=== PATIENT | female | born 1930 | race Caucasian/White ===

== ENCOUNTER 2017-03-07 08:47 | Inpatient (IN) | payer MEDICARE, BC ==
--- NOTE | ~2017-03-07 | DS ---
Discharge Summary [facility] [address] [place]. [address] NAME: ALIA BAEZ : 30 STATUS : DIS IN PAT#: [id number] AGE: 87 ADM/REG DATE : 03/07/17 MR#: [id number] REPORT SERV DATE: 03/12/17 DICTATED BY: LEATHA BELLA DATE: 03/11/17 REPORT STATUS : Draft TRANSCRIBED BY: MODL DATE: 03/11/17 ADMISSION DATE: 03/07/2017 DISCHARGE DATE: 03/11/2017 CONSULTING PHYSICIAN: Chay Gee M.D., Orthopedics. DISCHARGE DIAGNOSES: 1. Fall with acute traumatic fracture of left hip. 2. Acute blood loss anemia due to fracture and surgery. 3. Severe senile dementia with acute delirium postop, transient, improved. 4. 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 5. 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 6. History of recurring Clostridium difficile colitis, but not currently. 7. History of chronic lymphocytic colitis. 8. Previous gastrointestinal bleed when on Plavix. 9. Coronary bypass in 1991. 10.Bilateral rotator cuff tears, chronic. HISTORY: This patient has known dementia and was recently hospitalized here 01/18/2017 through 01/25/2017 with an acute left temporal stroke complicated by encephalopathy and seizures. She was discharged to rehab and had gone home. She was in the bathroom, heard the sound of a fall, came and found her on the floor. She was conscious, could not get up. The family was not aware of any other witnessed falls, but they had noticed a bruise over her left eyebrow a day or two prior to this admission. They did not know how she got it. She was brought to the emergency room at [facility] where she was found on x-ray to have an acute left hip fracture. We were asked to admit her to the hospital. She was medically evaluated and felt to be cleared for her surgery. I talked with the patient, her , and daughter about her perioperative risks. Her revised cardiac risk index was 6.6%. But there were no good other alternatives for this patient who wants to ambulate in the future. She underwent surgical repair of that left hip on 03/08/2017. Afterwards the patient did have some delirium, some of it may have been aggravated by narcotics, some of it may have been aggravated by the noise and stimulation of the hospital. Her opiates have been minimized, and she has done better. Today she is calm, cooperative, eating well, and pleasant. She has acute blood loss anemia. Her hemoglobin on admission 11.3, at discharge 8.5, this is consistent with her fracture and the surgical repair. This will need monitoring as well her PT/INR as she is now on prophylactic Coumadin after her hip fracture. INR at discharge is 1.6. The patient has a history of C. difficile colitis and her GI specialist, Dr. Alarcon, at Discharge Summary [address] [place]. [address] NAME: ALIA BAEZ : 30 STATUS : DIS IN PAT#: [id number] AGE: 87 ADM/REG DATE : 03/07/17 MR#: [id number] REPORT SERV DATE: 03/12/17 DICTATED BY: LEATHA BELLA DATE: 03/11/17 REPORT STATUS : Draft TRANSCRIBED BY: CAMELIA DATE: 03/11/17 Zane actually has her taking vancomycin 125 mg by mouth every third day as a single dose to reduce the risk of recurring C. difficile colitis. I see at home she was taking Prevacid, but I do not see a good indication for it and it does increase the risk of recurrent C. difficile colitis, so we are stopping it at this point in time. DISCHARGE MEDICATIONS: 1. Exforge 10/320 mg one p.o. every morning, hold if systolic less than 110. 2. Aspirin 81 mg daily (because of prior stroke). 3. Entocort EC 6 mg every morning for chronic lymphocytic colitis. 4. Restasis ophthalmic one drop both eyes twice a day. 5. Os-Mick 500 mg at bedtime. 6. Aricept 10 mg at bedtime. 7. Keppra 500 mg b.i.d. 8. Multivitamin once a day. 9. Toprol-XL 100 mg at bedtime. Hold if pulse less than 60 or systolic less than 105. 10.Zoloft 50 mg every morning. 11.Zocor 40 mg every evening. 12.Tramadol 50 mg q.6 hours p.r.n. pain and the Orthopedic Team wrote a prescription for 120 tablets. 13.Vancomycin 125 mg every third day. 14.Coumadin 2.5 mg at bedtime. 15.Tylenol 650 mg q.4 hours p.r.n. mild pain. 16.Mylanta p.r.n. indigestion. 17.Refresh eye drops p.r.n. 18.Lomotil 2.5 mg every 3 hours, but only use that if she has had more than three loose stools. 19.Dulcolax suppository p.r.n. 20.Milk of magnesia p.r.n. 21.Hydrocodone 5/325 mg one or two every 4 hours p.r.n. pain, Orthopedics prescribed 60 of these. 22.MiraLAX p.r.n. 23.Zofran 4 mg q.4 hours p.r.n. nausea. 24.Probiotic once every day. She should follow up with Orthopedic, Dr. Gee in two to three weeks. She should have CBC, PT/INR with BMP two times per week. I spent 25 minutes today with the patient and with discharge planning. SHAHEED/CAMELIA Leatha Bella M.D. / [id number] Discharge Summary [address] [address] NAME: ALIA BAEZ : 30 STATUS : DIS IN PAT#: [id number] AGE: 87 ADM/REG DATE : 03/07/17 MR#: [id number] REPORT SERV DATE: 03/12/17 DICTATED BY: LEATHA BELLA DATE: 03/11/17 REPORT STATUS : Draft TRANSCRIBED BY: CAMELIA DATE: 03/11/17 CC: Cullen Preciado M.D. [facility] Jose Cullen Aguirre MD William Warren, M.D.
--- NOTE | ~2017-03-07 | HP ---
History And Physical [address] [place]. [address] NAME: ALIA BAEZ : 30 STATUS : ADM IN PAT#: [id number] AGE: 87 ADM/REG DATE : 03/07/17 MR#: [id number] REPORT SERV DATE: 03/08/17 DICTATED BY: ANKITA RODRIGUEZ DATE: 03/08/17 REPORT STATUS : Draft TRANSCRIBED BY: CAMELIA DATE: 03/08/17 DATE OF ADMISSION: 03/07/2017 CHIEF COMPLAINT: Right hip pain. HISTORY: This is a very pleasant 87-year-old female well known to me for many years, who fell and injured her right hip. Denies pain or injury elsewhere. No associated loss of consciousness, shortness of breath, chest pain, etc. ALLERGIES: SULFA, MORPHINE, CODEINE. MEDICATIONS: See chart. PAST MEDICAL HISTORY: Hearing loss, cataracts, coronary artery disease, hypercholesterolemia, hypertension, myocardial infarction, osteoporosis, arthritis, GERD. PAST SURGICAL HISTORY: Hysterectomy; stapedectomy; CABG x4, 1991; bilateral cataracts, 1993; renal artery stent in 2007; cholecystectomy, 2008; appendectomy, 2010. SOCIAL HISTORY: . No cigarettes, alcohol, or illicit drug use. FAMILY HISTORY: No anesthetic complications. REVIEW OF SYSTEMS: No recent illnesses. PHYSICAL EXAMINATION: GENERAL: She is alert and oriented x3, in no apparent distress. HEENT: Atraumatic, normocephalic. NECK: Supple. CHEST: Symmetric. Nontender. LUNGS: Per evaluation and medicine evaluation. ABDOMEN: Soft. No masses. CV: Regular. EXTREMITIES: Both upper extremities, left lower extremity without acute trauma. Right hip short and externally rotated. SKIN: Intact. Compartments supple. 2+ pulses. NEURO: Sensorimotor without deficit. X-RAYS: Displaced right femoral neck fracture. ASSESSMENT: Displaced right femoral neck fracture. PLAN: Right total hip arthroplasty. Risks, benefits, etc. explained. The patient wishes to proceed. History And Physical [address] [place]. [address] NAME: ALIA BAEZ : 30 STATUS : ADM IN PAT#: [id number] AGE: 87 ADM/REG DATE : 03/07/17 MR#: [id number] REPORT SERV DATE: 03/08/17 DICTATED BY: ANKITA RODRIGUEZ DATE: 03/08/17 REPORT STATUS : Draft TRANSCRIBED BY: MODLaura DATE: 03/08/17 WTB/CAMELIA Chay Rodriguez M.D. / [id number] CC: Cullen Preciado M.D.
--- NOTE | ~2017-03-07 | HP ---
History And Physical [place] [id number] [place]. [address] NAME: ALIA BAEZ : 30 STATUS : ADM IN PAT#: [id number] AGE: 87 ADM/REG DATE : 03/07/17 MR#: [id number] REPORT SERV DATE: 03/08/17 DICTATED BY: ANKITA RODRIGUEZ DATE: 03/08/17 REPORT STATUS : Draft TRANSCRIBED BY: MODL DATE: 03/08/17 DATE OF ADMISSION: 03/07/2017 Everything I said, it should be left hip. She has a left hip fracture. WTB/MODL Chay Rodriguez M.D. / [id number] CC: Cullen Preciado M.D.
--- NOTE | ~2017-03-07 | OP ---
Record Of [facility] [address] [place]. [address] NAME: ALIA BAEZ : 30 STATUS : DIS IN PAT#: [id number] AGE: 87 ADM/REG DATE : 03/07/17 MR#: [id number] REPORT SERV DATE: 03/11/17 DICTATED BY: ANKITA RODRIGUEZ DATE: 03/11/17 REPORT STATUS : Draft TRANSCRIBED BY: CAMELIA DATE: 03/11/17 DATE OF PROCEDURE: 03/08/2017 PREOPERATIVE DIAGNOSIS: Left intertrochanteric femur fracture. POSTOPERATIVE DIAGNOSIS: Left intertrochanteric femur fracture. OPERATION: Dent/intertrochanteric femur fracture. SIDE: Left. MANUFACTURING RECRUITER: See chart. ESTIMATED BLOOD LOSS: About 100 mL. TOURNIQUET TIME: None. COMPLICATIONS: None. SPECIMENS: None. ANESTHESIA: See chart. PROCEDURE: The patient was taken to the preoperative holding area. The patient was appropriately identified, marked and the consent form carefully checked. The patient was taken then to the operating room and anesthetic was induced per the anesthesiologist. The patient was carefully positioned, carefully padded, prepped and draped on the fracture table. Prior to the surgical prep a closed reduction was obtained by closed method using fluoroscopic guidance. The patient was then prepped and draped in the usual sterile fashion. Using fluoroscopic guidance, a straight lateral incision was made. This was followed by electrocautery through the fat, the IT band and the vastus, staying towards the posterior portion of the lateral vastus to decrease the amount of muscle tissue that was cut through. Meticulous hemostasis was obtained with electrocautery. Lateral femoral cortex was exposed further with periosteal elevator and appropriate retraction. A guide was then used to place a guidewire basically in the center of the head on AP and lateral x-ray views. This was followed by depth gauge and then triple reamer. Lag screw was placed over the guidewire. The sliding plate was then placed and impacted and checked to be sure it was down snug. The plate was held with a plate clamp distally and reduction again checked. The screw holes in the plate were then filled with screws in the standard fashion with drill depth gauge and then self-tapping screw placement. The screws were then tightened by hand. Record Of Operation [facility] [address] [place]. [address] NAME: ALIA BAEZ : 30 STATUS : DIS IN PAT#: [id number] AGE: 87 ADM/REG DATE : 03/07/17 MR#: [id number] REPORT SERV DATE: 03/11/17 DICTATED BY: ANKITA RODRIGUEZ DATE: 03/11/17 REPORT STATUS : Draft TRANSCRIBED BY: MODL DATE: 03/11/17 All traction was released and the compression screw placed and tightened. Again x-ray views were checked to ascertain reduction and screw length. The wound was then irrigated and closed with sutures in the vastus. A medium drain was placed distally anteriorly between the vastus and the IT band, then sutured on the IT band, 2-0 subcutaneous, and sheree in the skin. Wound dressed sterilely. The patient was awakened and carefully transferred to the bed and transferred to the recovery room without incident. COUNTS: Correct. WTB/MODL Chay Rodriguez M.D. / [id number] CC: Cullen Preciado M.D.
--- NOTE | ~2017-03-07 | HP ---
History And Physical [place] [address] [place]. [address] NAME: ALIA BAEZ : 30 STATUS : ADM IN [facility]#: [id number] AGE: 87 ADM/REG DATE : 03/07/17 MR#: [id number] REPORT SERV DATE: 03/07/17 DICTATED BY: LEATHA BELLA DATE: 03/07/17 REPORT STATUS : Draft TRANSCRIBED BY: MODL DATE: 03/07/17 DATE OF ADMISSION: 03/07/2017 IDENTIFYING DATA: An 87-year-old white female, whose PCP is Dr. Claudio Butterfield, Neurology Dr. Kate Padilla, GI Dr. Vadim Alarcon, at [place], audio visual arts director Dr. Nicola Bradley and Dr. Samy Ghosh. CHIEF COMPLAINT: Fall. HISTORY OF PRESENT ILLNESS: This history of present illness is obtained by talking directly with the patient as well as and daughter at the bedside as well as ER physician, Dr. Knowles and reviewed [employer] and [employer]. The patient fell at home this morning unwitnessed, heard the fall, heard her call out. She only recalls that she thinks her left leg gave out. states, she was screaming immediately, could not get up, called 911, brought to the emergency room, found to have a left hip fracture, and we were contacted to do the admission. Family states, she has no other recent falls, but they did find a bruise over her left eyebrow a day or two ago that they had no idea how she got it. REVIEW OF SYSTEMS: She has had some cough, sneezes, rhinorrhea, slight ankle edema, chronic anorexia, supposed to drink boost twice a day, but maybe takes a can every couple days. She has thin skin and bruises easily. She has report of bilateral rotator cuff tears, but not healthy enough repair. She has had no recent fever, chest pain, shortness of breath, abdominal pain, nausea, vomiting, diarrhea, (no diarrhea at least three weeks). She has had no recent rectal bleeding, melena, dysuria (reportedly finished a course of Cipro for urinary tract infection on 02/25/2017). No recent tick bites or headaches. PAST MEDICAL HISTORY: She claims allergies to sulfa, morphine, and codeine, family corroborates. No history of diabetes, asthma, COPD, congestive heart failure, peptic ulcer, liver disease, chronic kidney disease, kidney stones, thyroid disease, cancer, or sleep apnea. She was hospitalized here in 01/18/2017 through 01/25/2017 with an acute left temporal lobe ischemic stroke, complicated by encephalopathy and seizures. Neurology at that time, started her on Keppra and she has not had any reported seizures since that time. She went to [facility] for rehab and then home. She has had a history of recurring episodes of C difficile colitis, so frequent and severe that on 05/2016 at [place], the patient had fecal transplant. She reportedly had another episode of C difficile colitis 08/2016, and was just placed on vancomycin and according to the family, their GI doctor has her now on chronic small dose of vancomycin 125 mg every three days long-term. She also has a history of lymphocytic colitis, for which she has been on budesonide. She also has a history of esophageal stricture with previous dilatation. History And Physical [address] [place]. [address] NAME: ALIA BAEZ : 30 STATUS : ADM IN [facility]#: [id number] AGE: 87 ADM/REG DATE : 03/07/17 MR#: [id number] REPORT SERV DATE: 03/07/17 DICTATED BY: LEATHA BELLA DATE: 03/07/17 REPORT STATUS : Draft TRANSCRIBED BY: CAMELIA DATE: 03/07/17 She also reportedly had a previous GI bleed while she was on Plavix. She has senile dementia, Alzheimer's type. She had coronary bypass in 1991. She has had renal artery stenosis, treated with a stent. She had a reportable left carotid stenosis, but not felt to need surgery. She has had hypertension. She has had weight loss with anorexia and her weight was 90 pounds when she went to the rehab on 01/25, and was 97 pounds when she left three weeks later, but currently at home was reportedly 94 pounds. HOME MEDICATIONS: Exforge 10/320 once a day, refresh one drop both eyes q.i.d., aspirin 81 mg daily, Entocort EC 6 mg every day, Os-Mick 500 mg at bedtime, Restasis twice a day one drop, Lomotil one tablet every three hours p.r.n. diarrhea, but only if she has had more than three loose stools, Aricept 10 mg at bedtime, Prevacid 30 mg daily, Keppra 500 mg b.i.d., Toprol-XL 100 mg daily, probiotic once a day, multivitamin once a day, Zoloft 50 mg daily, Zocor 40 mg at bedtime, vancomycin 125 mg every third day. PAST SURGICAL HISTORY: She has had coronary bypass, appendectomy, tonsillectomy, cholecystectomy, cataract surgery, and a left wrist fracture. SOCIAL HISTORY: She is . She is a retired housewife. She lives at home with her , has home health. Uses a walker most of the time, but did not have it in the bathroom with her today when she fell. She has no tobacco or alcohol intake history. FAMILY HISTORY: Mother had heart disease and hypertension. Father killed in his 20s with a gunshot wound. Siblings with diabetes, heart disease, ovarian cancer, stroke, and one of them had ALS. DIAGNOSTIC DATA: Chest x-ray shows a portable single film with cardiomegaly, clear lung ochoa, evidence of previous sternotomy per my interpretation. EKG has not been done yet. Today her EKG from 01/18/2017, normal sinus rhythm, nonspecific ST abnormalities, T-wave inversion more evident in the lateral leads. Sodium 139, potassium 3.4, chloride 102, CO2 is 25, BUN 18, creatinine 0.74, glucose is 96, calcium 9.3, magnesium 2.2, albumin 3.2. The rest of the CMP is normal. White count is 9, hemoglobin 11.3, platelets 328,000. Protime 13.8, INR 1.1, PTT is 23.6. Echocardiogram on 01/21/2017, left atrium 4 cm, left ventricular ejection fraction 60%, concentric LVH, aortic valvular sclerosis without stenosis, pulmonary artery pressure 41. PHYSICAL EXAMINATION: VITAL SIGNS: Temp is 98, pulse 70, respirations 16, blood pressure 160/70, O2 saturation is 100% on room air. GENERAL: A well-developed older female, who appears in mild discomfort, but in no acute distress. HEENT: Head is atraumatic. Pupils are equal, round, and reactive to light. Extraocular motions are intact. No scleral icterus noted. There is evidence of previous cataract surgery. Ear canals on the left normal, right side with a hearing aid in place. No inflammatory changes noted externally. Nose, noninflamed externally. Septum midline. Nares patent. Mouth, moist. Good gag. No redness of the throat, gums, or lips. History And Physical [address] [place]. [address] NAME: ALIA BAEZ : 30 STATUS : ADM IN PAT#: [id number] AGE: 87 ADM/REG DATE : 03/07/17 MR#: [id number] REPORT SERV DATE: 03/07/17 DICTATED BY: LEATHA BELLA DATE: 03/07/17 REPORT STATUS : Draft TRANSCRIBED BY: CAMELIA DATE: 03/07/17 NECK: Supple. No lymph node or thyroid enlargement. The carotids have good pulses. There is a left-sided carotid bruit. HEART: Regular rate and rhythm with a grade 1 systolic murmur heard at the right second intercostal space. No lift or heave. LUNGS: Clear. Good air flow. No wheezes. No rhonchi. Normal respiratory effort. ABDOMEN: Bowel sounds are positive. Soft, nondistended, nontender. No masses. No organomegaly. EXTREMITIES: Warm. Good pulses. No clubbing, no cyanosis, no edema. No actively inflamed skin. She has some chronic venous stasis changes in her ankles. Her left leg is shortened and externally rotated. She is not moving it at this time other than she will move her toes to command. NEUROLOGIC: She is alert. She is oriented to person, somewhat to circumstance. Her memory of recent events is very poor. She follow simple commands. Her motor strength in her hands 2/5, motor strength in her right knee and right foot, 2/5. No Babinski. No clonus noted. Cranial nerves II through XII only remarkable for diminished hearing and previous cataract surgical repair. ASSESSMENT: 1. Acute left hip traumatic fracture with fall. No evidence of syncope. 2. Chronic lymphocytic colitis with frequent episodes of C. diff colitis in the past. Risk factors for this patient include ongoing use of a proton pump inhibitor as well as steroids. 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 Now on chronic vancomycin suppression per her gastrointestinal doctor, Dr. Alarcon at [place]. 3. Recent left temporal stroke, 12/2016. 4. Post stroke seizures, 12/2016, now reportedly controlled by Keppra. 5. Hypokalemia. 6. See past medical history. PLAN: The patient has already been n.p.o. She has not eaten anything today, last she ate was about afternoon on 03/06/2017. We will replace her potassium through her IV. We will give her IV fluids. We will ask Orthopedics to see her. I think, she is medically optimized as best she can be once the potassium is replaced for her hip surgery. We will try to avoid antibiotic use as much as possible and I am going to hold her proton pump inhibitor for right now, and I am also going to hold her Exforge since often these patient's blood pressures drop significantly after the repair. SHAHEED/CAMELIA Leatha Bella M.D. / [id number] CC: History And Physical [address] [address] NAME: ALIA BAEZ : 30 STATUS : ADM IN [facility]#: [id number] AGE: 87 ADM/REG DATE : 03/07/17 MR#: [id number] REPORT SERV DATE: 03/07/17 DICTATED BY: LEATHA BELLA DATE: 03/07/17 REPORT STATUS : Draft TRANSCRIBED BY: CAMELIA DATE: 03/07/17 Leatha Bella M.D. Clauido Butterfield M.D. Kate Padilla M.D. MD Nicola Casarez M.D.
[~2017-03-07 08:47] MED LIST: ACET500CAP PO; AQUASOL E50 UNT/ML PO; ARICEPT10 PO; ASAB PO; CEFT5 PO; CELEXA10 PO; CENTRUM TAB1 TAB PO; CITRACAL PO; ENTOCORT3 PO; EXELON4.6T TOP; EXFORGE 10/320 PO; EXFORGE PO; EXFORGE1 TA3 PO; FISH-EPA1000 MG PO; HALF81 PO; KLOR-CON M1010 MEQ PO; KLOR-CON M2020 MEQ PO; LOM PO; LOP100 PO; METAMUCIL CAN7 OZ PO; METOPROLOL PO; MULTIPLE VIT PO; MULTIVIT/MIN PO; NIACIN 500 PO; OS500+D PO; PEP20 PO; PEPTO-BISMOL TA1 TAB PO; PLAVIX PO; PREV30 PO; PRILO PO; PROBIOTIC PO; RECLAST IV; REFRESH OPH; REFRESH1 % OPH; RESTASIS OPH; TOPXL100 PO; TYLENOL ARTH650 MG PO; VANCOCIN HCL125 MG PO; ZOCOR40 PO; ZOL50 PO
[2017-03-07 10:12] LABS: BASOPHILS 0.4 %; BASOPHILS ABSOLUTE 0.04 10/3/uL (0.0-0.16); EOSINOPHILS 1.6 %; EOSINOPHILS ABSOLUTE 0.14 10/3/uL (0.0-0.53); ER CBC TAT 0 Hrs 07 Mins; HEMATOCRIT 33.6 % (36.0-48.0); HEMOGLOBIN 11.3 g/dL (12.0-16.0); IMMATURE GRANULOCYTES 0.3 %; IMMATURE GRANULOCYTES ABSOLUTE 0.03 10/3/uL (0.0-0.11); LYMPHOCYTES 15.7 %; LYMPHOCYTES ABSOLUTE 1.42 10/3/uL (0.67-4.30); MANUAL DIFF NO %; MEAN CORPUS HGB CONC 33.6 g/dL (32.0-36.0); MEAN CORPUSCULAR HEMOGLOB 27.4 pg (26.0-34.0); MEAN CORPUSCULAR VOLUME 81.4 fL (80-100); MEAN PLATELET VOLUME 9.4 fL (9.2-13.0); MONOCYTES 8.4 %; MONOCYTES ABSOLUTE 0.76 10/3/uL (0.21-1.20); NEUTROPHILS 73.6 %; NEUTROPHILS ABSOLUTE 6.64 10/3/uL (2.02-8.40); PLATELET COUNT 328 10/3/uL (150-400); RBC DISTRIBUTION WIDTH 15.5 % (12.0-16.0); RED CELL COUNT 4.13 10/6/uL (4.0-5.6)
[2017-03-07 10:19] LABS: INTERNATIONAL NORMAL RATI 1.1 UNITS (-); PARTIAL THROMBO TIME 23.6 SEC (22.5-37.2); PROTIME (NOT ORD) 13.8 SEC (12.0-14.5)
[2017-03-07 10:28] LABS: A/G RATIO 0.9 (0.7-1.9); ALBUMIN 3.2 G/DL (3.5-5.0); ALKALINE PHOSPHATASE 115 U/L (45-117); BUN (BLOOD UREA NITROGEN) 18 MG/DL (6-23); CALCIUM, SERUM 9.3 MG/DL (8.5-10.4); CHLORIDE, SERUM 102 MMOL/L (96-112); CO2 (CARBON DIOXIDE) 25 MMOL/L (24-34); CREATININE 0.74 MG/DL (0.55-1.02); GFR AFRICAN AMERICAN 84 ML/MIN (>=60); GFR NON AFRICAN AMERICAN 73 ML/MIN (>=60); GLOBULIN 3.7 G/DL (2.5-4.1); GLUCOSE, SERUM 96 MG/DL (60-99); POTASSIUM, SERUM 3.4 MMOL/L (3.5-5.3); SGOT(AST) 23 U/L (5-40); SGPT(ALT) 23 U/L (5-65); TOTAL BILIRUBIN 0.8 MG/DL (0-1.2); TOTAL PROTEIN 6.9 G/DL (6.0-8.5)
[2017-03-07 10:29] LABS: SODIUM, SERUM 139 MMOL/L (135-148)
[2017-03-07] MEDS ORDERED: KEPPRA500 PO (10:31)
[2017-03-07] MEDS ORDERED: LOM PO (10:33)
[2017-03-07] MEDS ORDERED: REFRESH OPH (10:34)
[2017-03-07] MEDS ORDERED: EXFORGE1 TA3 PO (10:36)
[2017-03-07 16:47] LABS: ASCORBIC ACID (UR NOT ORDER) NEG (NEG); BILIRUBIN, URINE NEGATIVE (NEG); KETONE, URINE NEGATIVE (NEG); LEUKOCYTE ESTERASE(NOT OR MOD (NEG); WBC (NOT ORDERED) (RFLEX) 24 (0-5)
[2017-03-08 05:30] LABS: BASOPHILS 0.7 %; BASOPHILS ABSOLUTE 0.06 10/3/uL (0.0-0.16); EOSINOPHILS 1.8 %; EOSINOPHILS ABSOLUTE 0.15 10/3/uL (0.0-0.53); HEMATOCRIT 31.6 % (36.0-48.0); HEMOGLOBIN 10.5 g/dL (12.0-16.0); IMMATURE GRANULOCYTES 0.2 %; IMMATURE GRANULOCYTES ABSOLUTE 0.02 10/3/uL (0.0-0.11); LYMPHOCYTES 11.2 %; LYMPHOCYTES ABSOLUTE 0.96 10/3/uL (0.67-4.30); MEAN CORPUS HGB CONC 33.2 g/dL (32.0-36.0); MEAN CORPUSCULAR HEMOGLOB 26.9 pg (26.0-34.0); MEAN PLATELET VOLUME 9.8 fL (9.2-13.0); MONOCYTES 12.5 %; MONOCYTES ABSOLUTE 1.07 10/3/uL (0.21-1.20); NEUTROPHILS 73.6 %; NEUTROPHILS ABSOLUTE 6.28 10/3/uL (2.02-8.40); PLATELET COUNT 308 10/3/uL (150-400); RBC DISTRIBUTION WIDTH 15.6 % (12.0-16.0); WHITE BLOOD CELLS 8.5 10/3/uL (4.5-10.5)
[2017-03-08 05:32] LABS: CALCIUM, SERUM 9.5 MG/DL (8.5-10.4); CHLORIDE, SERUM 102 MMOL/L (96-112); CO2 (CARBON DIOXIDE) 24 MMOL/L (24-34); CREATININE 0.68 MG/DL (0.55-1.02); GFR AFRICAN AMERICAN 91 ML/MIN (>=60); GFR NON AFRICAN AMERICAN 79 ML/MIN (>=60); GLUCOSE, SERUM 106 MG/DL (60-99); POTASSIUM, SERUM 3.9 MMOL/L (3.5-5.3); SODIUM, SERUM 137 MMOL/L (135-148)
[2017-03-08 05:35] LABS: BUN (BLOOD UREA NITROGEN) 13 MG/DL (6-23)
[2017-03-08 05:41] LABS: MANUAL DIFF NO %
[2017-03-09 05:04] LABS: HEMOGLOBIN 9.1 g/dL (12.0-16.0); MEAN CORPUS HGB CONC 34.1 g/dL (32.0-36.0); MEAN CORPUSCULAR HEMOGLOB 27.6 pg (26.0-34.0); MEAN CORPUSCULAR VOLUME 80.9 fL (80-100); MEAN PLATELET VOLUME 9.7 fL (9.2-13.0); PLATELET COUNT 278 10/3/uL (150-400); RBC DISTRIBUTION WIDTH 15.5 % (12.0-16.0); WHITE BLOOD CELLS 10.3 10/3/uL (4.5-10.5)
[2017-03-09 05:07] LABS: HEMATOCRIT 26.7 % (36.0-48.0); MANUAL DIFF YES %
[2017-03-09 05:13] LABS: INTERNATIONAL NORMAL RATI 1.1 UNITS (-); PROTIME (NOT ORD) 14.2 SEC (12.0-14.5)
[2017-03-09 05:24] LABS: CHLORIDE, SERUM 103 MMOL/L (96-112); CO2 (CARBON DIOXIDE) 22 MMOL/L (24-34); CREATININE 0.72 MG/DL (0.55-1.02); GFR AFRICAN AMERICAN 87 ML/MIN (>=60); GFR NON AFRICAN AMERICAN 75 ML/MIN (>=60); POTASSIUM, SERUM 3.8 MMOL/L (3.5-5.3); SODIUM, SERUM 136 MMOL/L (135-148)
[2017-03-09 05:38] LABS: BUN (BLOOD UREA NITROGEN) 17 MG/DL (6-23); CALCIUM, SERUM 8.2 MG/DL (8.5-10.4); GLUCOSE, SERUM 140 MG/DL (60-99)
[2017-03-09 05:55] LABS: BAND NEUTROPHILS 2 %; LYMPHOCYTES 2 %; LYMPHOCYTES ABSOLUTE (CALC) 0.21 10/3/uL (0.67-4.30); MONOCYTES 2 %; MONOCYTES ABSOLUTE (CALC) 0.21 10/3/uL (0.21-1.20); NEUTROPHILS ABSOLUTE (CALC) 9.89 10/3/uL (2.02-8.40); PLATELET ESTIMATE ADQ (ADEQUATE); RBC MORPHOLOGY NORM (NORMAL); SEGMENTED NEUTROPHIL (0) 94 %; TOTAL NUCLEATED CELLS 100
[2017-03-10 02:09] LABS: BASOPHILS 0.1 %; BASOPHILS ABSOLUTE 0.01 10/3/uL (0.0-0.16); EOSINOPHILS 0 %; HEMOGLOBIN 8.4 g/dL (12.0-16.0); IMMATURE GRANULOCYTES 0.3 %; IMMATURE GRANULOCYTES ABSOLUTE 0.03 10/3/uL (0.0-0.11); LYMPHOCYTES 4.9 %; LYMPHOCYTES ABSOLUTE 0.43 10/3/uL (0.67-4.30); MEAN CORPUSCULAR HEMOGLOB 27.5 pg (26.0-34.0); MEAN CORPUSCULAR VOLUME 78.7 fL (80-100); MEAN PLATELET VOLUME 9.2 fL (9.2-13.0); MONOCYTES 9.1 %; NEUTROPHILS 85.6 %; NEUTROPHILS ABSOLUTE 7.48 10/3/uL (2.02-8.40); PLATELET COUNT 261 10/3/uL (150-400); RBC DISTRIBUTION WIDTH 15.6 % (12.0-16.0); RED CELL COUNT 3.05 10/6/uL (4.0-5.6); WHITE BLOOD CELLS 8.8 10/3/uL (4.5-10.5)
[2017-03-10 02:13] LABS: INTERNATIONAL NORMAL RATI 1.1 UNITS (-); MANUAL DIFF NO %; PROTIME (NOT ORD) 14.4 SEC (12.0-14.5)
[2017-03-10 02:17] LABS: BUN (BLOOD UREA NITROGEN) 17 MG/DL (6-23); CALCIUM, SERUM 8.9 MG/DL (8.5-10.4); CHLORIDE, SERUM 102 MMOL/L (96-112); CO2 (CARBON DIOXIDE) 24 MMOL/L (24-34); CREATININE 0.81 MG/DL (0.55-1.02); GFR AFRICAN AMERICAN 76 ML/MIN (>=60); GFR NON AFRICAN AMERICAN 65 ML/MIN (>=60); GLUCOSE, SERUM 119 MG/DL (60-99); POTASSIUM, SERUM 3.9 MMOL/L (3.5-5.3); SODIUM, SERUM 136 MMOL/L (135-148)
[2017-03-11 08:09] LABS: BASOPHILS 0.3 %; BASOPHILS ABSOLUTE 0.02 10/3/uL (0.0-0.16); EOSINOPHILS 5.1 %; EOSINOPHILS ABSOLUTE 0.32 10/3/uL (0.0-0.53); HEMATOCRIT 24.6 % (36.0-48.0); HEMOGLOBIN 8.5 g/dL (12.0-16.0); IMMATURE GRANULOCYTES 0.2 %; IMMATURE GRANULOCYTES ABSOLUTE 0.01 10/3/uL (0.0-0.11); LYMPHOCYTES ABSOLUTE 0.63 10/3/uL (0.67-4.30); MEAN CORPUS HGB CONC 34.6 g/dL (32.0-36.0); MEAN CORPUSCULAR HEMOGLOB 27.3 pg (26.0-34.0); MEAN CORPUSCULAR VOLUME 79.1 fL (80-100); MEAN PLATELET VOLUME 9.3 fL (9.2-13.0); MONOCYTES 8.9 %; MONOCYTES ABSOLUTE 0.56 10/3/uL (0.21-1.20); NEUTROPHILS 75.5 %; NEUTROPHILS ABSOLUTE 4.77 10/3/uL (2.02-8.40); PLATELET COUNT 299 10/3/uL (150-400); RBC DISTRIBUTION WIDTH 15.6 % (12.0-16.0); RED CELL COUNT 3.11 10/6/uL (4.0-5.6); WHITE BLOOD CELLS 6.3 10/3/uL (4.5-10.5)
[2017-03-11 08:20] LABS: MANUAL DIFF NO %
[2017-03-11 08:24] LABS: BUN (BLOOD UREA NITROGEN) 15 MG/DL (6-23); CALCIUM, SERUM 8.6 MG/DL (8.5-10.4); CHLORIDE, SERUM 99 MMOL/L (96-112); CO2 (CARBON DIOXIDE) 23 MMOL/L (24-34); CREATININE 0.57 MG/DL (0.55-1.02); GFR AFRICAN AMERICAN 97 ML/MIN (>=60); GFR NON AFRICAN AMERICAN 83 ML/MIN (>=60); POTASSIUM, SERUM 3.6 MMOL/L (3.5-5.3); SODIUM, SERUM 133 MMOL/L (135-148)
[2017-03-11 08:25] LABS: GLUCOSE, SERUM 93 MG/DL (60-99)
[2017-03-11 08:27] LABS: INTERNATIONAL NORMAL RATI 1.6 UNITS (-)
[2017-03-11 08:28] LABS: PROTIME (NOT ORD) 18.7 SEC (12.0-14.5)
== END 2017-03-11 14:14 | DRG 480 ==
LOC: ER 08:47 → 3SO 10:42
PROVIDERS: Emergency Medicine; Hospitalist; Nurse Practitioner; Specialist
PROC: 0QS904Z Reposition Left Femoral Shaft with Internal Fixation Device, Open Approach (ICD-10-PCS; principal; 2017-03-07)
DX: S72.002A Fracture of unspecified part of neck of left femur, initial encounter for closed fracture (principal); G93.40 Encephalopathy, unspecified; F05 Delirium due to known physiological condition; Z95.1 Presence of aortocoronary bypass graft; D62 Acute posthemorrhagic anemia; E87.6 Hypokalemia; K52.832 Lymphocytic colitis; Z86.73 Personal history of transient ischemic attack (TIA), and cerebral infarction without residual deficits; W18.30XA Fall on same level, unspecified, initial encounter; S43.422A Sprain of left rotator cuff capsule, initial encounter; S43.421A Sprain of right rotator cuff capsule, initial encounter; F32.9 Major depressive disorder, single episode, unspecified; K21.9 Gastro-esophageal reflux disease without esophagitis; I10 Essential (primary) hypertension; I25.10 Atherosclerotic heart disease of native coronary artery without angina pectoris
CPT/HCPCS: 36415; 70450; 70486; 71010; 72170; 73501-LT; 73502-LT; 76000; 80048; 80053; 81001; 83735; 85025; 85610; 85730; 86850; 86900; 86901; 87086; 93005; 96374; 96375; 97110-GP; 97161-GP; 97166-GO; 97530-GP; 99291; A9270-GY; C1713; G8978-CM-GP; G8979-CL-GP; J0360; J0690; J1170; J1885; J2250; J2274; J2370; J2405; J2795; J3010; J3480

== ENCOUNTER 2017-03-20 23:31 | Emergency (ER) | payer MEDICARE, BC ==
[~2017-03-20 23:31] MED LIST changes: +KEPPRA500 PO
[2017-03-21 00:14] LABS: BASOPHILS 0.7 %; BASOPHILS ABSOLUTE 0.07 10/3/uL (0.0-0.16); EOSINOPHILS 3.4 %; EOSINOPHILS ABSOLUTE 0.36 10/3/uL (0.0-0.53); HEMOGLOBIN 9.5 g/dL (12.0-16.0); IMMATURE GRANULOCYTES 0.7 %; IMMATURE GRANULOCYTES ABSOLUTE 0.07 10/3/uL (0.0-0.11); LYMPHOCYTES 18.5 %; LYMPHOCYTES ABSOLUTE 1.96 10/3/uL (0.67-4.30); MEAN CORPUS HGB CONC 33.6 g/dL (32.0-36.0); MEAN CORPUSCULAR VOLUME 80.4 fL (80-100); MEAN PLATELET VOLUME 8.7 fL (9.2-13.0); MONOCYTES 12.4 %; MONOCYTES ABSOLUTE 1.31 10/3/uL (0.21-1.20); NEUTROPHILS 64.3 %; NEUTROPHILS ABSOLUTE 6.83 10/3/uL (2.02-8.40); PLATELET COUNT 387 10/3/uL (150-400); RBC DISTRIBUTION WIDTH 15.9 % (12.0-16.0); RED CELL COUNT 3.52 10/6/uL (4.0-5.6)
[2017-03-21 00:15] LABS: HEMATOCRIT 28.3 % (36.0-48.0); MANUAL DIFF NO %; WHITE BLOOD CELLS 10.6 10/3/uL (4.5-10.5)
[2017-03-21 00:32] LABS: CHEST PAIN PROFILE TAT 0 Hrs 23 Mins; CHLORIDE, SERUM 105 MMOL/L (96-112); CREATININE 0.87 MG/DL (0.55-1.02); GFR AFRICAN AMERICAN 69 ML/MIN (>=60); GFR NON AFRICAN AMERICAN 60 ML/MIN (>=60); GLUCOSE, SERUM 108 MG/DL (60-99); SODIUM, SERUM 138 MMOL/L (135-148); TROPONIN I 0.02 NG/ML (<0.05)
[2017-03-21 00:33] LABS: BUN (BLOOD UREA NITROGEN) 23 MG/DL (6-23); CALCIUM, SERUM 9.6 MG/DL (8.5-10.4); CO2 (CARBON DIOXIDE) 29 MMOL/L (24-34); POTASSIUM, SERUM 4.7 MMOL/L (3.5-5.3)
[2017-03-21 00:38] LABS: PARTIAL THROMBO TIME 37.6 SEC (22.5-37.2)
[2017-03-21 00:41] LABS: PROTIME (NOT ORD) 31.2 SEC (12.0-14.5)
== END 2017-03-21 02:24 | disposition home or self-care (01) ==
LOC: ER 23:31
PROVIDERS: Emergency Medicine
DX: F03.90 Unspecified dementia, unspecified severity, without behavioral disturbance, psychotic disturbance, mood disturbance, and anxiety (principal); D64.9 Anemia, unspecified; E04.1 Nontoxic single thyroid nodule; I48.91 Unspecified atrial fibrillation; Z88.2 Allergy status to sulfonamides; Z88.5 Allergy status to narcotic agent; Z79.82 Long term (current) use of aspirin; Z79.899 Other long term (current) drug therapy; W06.XXXA Fall from bed, initial encounter
CPT/HCPCS: 70450; 72125; 73502-LT; 80048; 83735; 84484; 85025; 85610; 85730; 99285